=== PATIENT | male | born 1950 | race African-American/Black ===

== ENCOUNTER 2017-07-15 09:13 | Observation (INO) | payer OTHER, MEDICAID ==
[~2017-07-15] VITALS: Ht 172.7 cm; Wt 75.0 kg
[~2017-07-15 09:13] MED LIST: ASPI325T PO; CARV6.252 PO; FERR324T8 PO; FURO10S PO; LANTUS2P; LIPI20TA PO; METO5TAB46 PO; NOVOLOGP2 SQ; PANT40IN3; POTA-243 PO; QUET25 PO; TRAM100T19 PO
[2017-07-15 09:24] VITALS: BP 124/83; PULSE 77; RESP 24; TEMP 92.2; O2SAT 99
[2017-07-15] MEDS ORDERED: SODIUM CHLORIDE 0.9% FLUSH 10 ML FLUSH IVF PRN (09:45)
[2017-07-15] MEDS ORDERED: FUROSEMIDE 40 MG/4 ML VIAL IVP ONE (09:45)
--- NOTE | 2017-07-15 09:46 | PD ---
HPI Chief Complaint: Edema Time Seen by Provider: 09:33 Travel History International Travel<30 days: No Contact w/Intl Traveler<30days: No Traveled to known affect area: No History of Present Illness HPI 67-year-old male patient with history of hypertension, diabetes, CHF, currently on Lasix, presents to the ER today because of worsening of shortness of breath overnight, worse with laying down, leg swelling, facial swelling according to his neighbor. Patient denies any changes to his medications. He denies any chest pains, fevers, or other symptoms. Modifying Factors: None Associated Signs & Symptoms: Chest discomfort, shortness of breath, dyspnea on exertion, orthopnea Risk Factors: CHF history PFSH Past Medical History Hx Anticoagulant Therapy: Yes (asa 81) Autoimmune Disease: No Blood Disorders: No Cancer: No Cardiovascular Problems: No Diabetes: Yes Genitourinary: No Musculoskeletal: No Neurologic: No Psychiatric: No Reproductive: No Respiratory: No Thyroid Disease: No Past Surgical History Abdominal Surgery: No Cardiac Surgery: No Ear Surgery: No Endocrine Surgery: No Eye Surgery: No Genitourinary Surgery: No Gynecologic Surgery: No Neurologic Surgery: Yes (DISC SURGERY IN NECK) Oral Surgery: No Thoracic Surgery: No Social History Alcohol Use: Yes (2-3 BEERS/DAY) Tobacco Use: No Substance Use: No Allergies-Medications (Allergen,Severity, Reaction): Coded Allergies: No Known Allergies (Verified Adverse Reaction, Unknown, 07/15/17) Reported Meds & Prescriptions Reported Meds & Active Scripts Active Reported Aspirin Low Dose (Aspirin) 81 Mg Chew 81 Mg CHEW DAILY Lantus Inj (Insulin Glargine) 1,000 Unit/10 Ml Vial 14 Units SQ HS Novolog Inj (Insulin Aspart) 1,000 Unit/10 Ml Vial 11 Units SQ BIDAC Hydrocodone-Acetaminophen 5-325 mg Tab 1 Tab PO Q6H PRN Quetiapine (Quetiapine Fumarate) 25 Mg Tab 25 Mg PO HS Omeprazole 20 Mg Tab 20 Mg PO DAILY Atorvastatin (Atorvastatin Calcium) 20 Mg Tab 20 Mg PO HS Tamsulosin (Tamsulosin HCl) 0.4 Mg Cap 0.4 Mg BID Gabapentin 300 Mg Cap 300 Mg PO BID Potassium Chloride ER (Potassium Chloride) 20 Meq Tab 20 Meq PO DAILY Lisinopril 10 Mg Tab 10 Mg PO DAILY Amlodipine (Amlodipine Besylate) 10 Mg Tab 20 Mg PO DAILY Furosemide 40 Mg Tab 40 Mg PO DAILY Metoprolol Succinate ER 24 HR (Metoprolol Succinate) 25 Mg Tab 12.5 Mg PO DAILY Review of Systems Except as stated in HPI: all other systems reviewed are Neg Physical Exam Narrative GENERAL: Well-developed elderly male patient currently in mild respiratory distress at rest. Awake and oriented 3. SKIN: Focused skin assessment warm/dry. HEAD: Atraumatic. Normocephalic. EYES: Pupils equal and round. No scleral icterus. No injection or drainage. ENT: No nasal bleeding or discharge. Mucous membranes pink and moist. NECK: Trachea midline. Positive JVD. CARDIOVASCULAR: Regular rate and rhythm. No murmur appreciated. RESPIRATORY: No accessory muscle use. Bilateral rales at the bases. Breath sounds equal bilaterally. GASTROINTESTINAL: Abdomen soft, non-tender, nondistended. Hepatic and splenic margins not palpable. MUSCULOSKELETAL: No obvious deformities. No clubbing. No cyanosis. Bilateral pitting edema the legs. NEUROLOGICAL: Awake and alert. No obvious cranial nerve deficits. Motor grossly within normal limits. Normal speech. PSYCHIATRIC: Appropriate mood and affect; insight and judgment normal. Data Data Last Documented VS Vital Signs Date Time Temp Pulse Resp B/P (MAP) Pulse Ox O2 Delivery O2 Flow Rate FiO2 07/15/17 10:35 75 18 97 Room Air 07/15/17 10:35 141/88 (105) 07/15/17 09:24 92.2 Orders Orders Complete Blood Count With Diff (07/15/17 09:33) Comprehensive Metabolic Panel (07/15/17 09:33) B-Type Natriuretic Peptide (07/15/17 09:33) Act Partial Throm Time (Ptt) (07/15/17 09:33) Prothrombin Time / Inr (Pt) (07/15/17 09:33) Ckmb (Isoenzyme) Profile (07/15/17 09:33) Troponin I (07/15/17 09:33) Iv Access Insert/Monitor (07/15/17 09:33) Electrocardiogram (07/15/17:33) Ecg Monitoring (07/15/17 09:33) Oximetry (07/15/17 09:33) Oxygen Administration (07/15/17 09:33) Chest, Single Ap (07/15/17 09:33) Sodium Chloride 0.9% Flush (Ns Flush) (07/15/17 09:45) Furosemide Inj (Lasix Inj) (07/15/17 09:45) CKMB (07/15/17 11:12) CKMB% (07/15/17 11:12) Methylprednisolone So Succ Inj (Solumedr (07/15/17 13:00) Diphenhydramine Inj (Benadryl Inj) (07/15/17 13:00) Admit Order (Ed Use Only) (07/15/17 13:09) Labs Laboratory Tests Test 07/15/17 09:55 07/15/17 11:12 White Blood Count 5.9 TH/MM3 Red Blood Count 4.52 MIL/MM3 Hemoglobin 12.6 GM/DL Hematocrit 36.1 % Mean Corpuscular Volume 79.8 FL Mean Corpuscular Hemoglobin 27.9 PG Mean Corpuscular Hemoglobin Concent 35.0 % Red Cell Distribution Width 15.3 % Platelet Count 159 TH/MM3 Mean Platelet Volume 8.2 FL Neutrophils (%) (Auto) 84.0 % Lymphocytes (%) (Auto) 9.7 % Monocytes (%) (Auto) 4.5 % Eosinophils (%) (Auto) 0.4 % Basophils (%) (Auto) 1.4 % Neutrophils # (Auto) 4.9 TH/MM3 Lymphocytes # (Auto) 0.6 TH/MM3 Monocytes # (Auto) 0.3 TH/MM3 Eosinophils # (Auto) 0.0 TH/MM3 Basophils # (Auto) 0.1 TH/MM3 CBC Comment DIFF FINAL Differential Comment Prothrombin Time 9.9 SEC Prothromb Time International Ratio 1.0 RATIO Activated Partial Thromboplast Time 24.5 SEC Blood Urea Nitrogen 29 MG/DL Creatinine 3.11 MG/DL Random Glucose 127 MG/DL Total Protein 6.6 GM/DL Albumin 2.4 GM/DL Calcium Level 8.0 MG/DL Alkaline Phosphatase 79 U/L Aspartate Amino Transf (AST/SGOT) 76 U/L Alanine Aminotransferase (ALT/SGPT) 24 U/L Total Bilirubin 0.3 MG/DL Sodium Level 135 MEQ/L Potassium Level 4.8 MEQ/L Chloride Level 104 MEQ/L Carbon Dioxide Level 18.2 MEQ/L Anion Gap 13 MEQ/L Estimat Glomerular Filtration Rate 24 ML/MIN Total Creatine Kinase 2152 U/L Creatine Kinase MB 23.1 NG/ML Creatine Kinase MB % 1.1 % Troponin I 0.07 NG/ML B-Type Natriuretic Peptide 91 PG/ML MDM Medical Decision Making Medical Screen Exam Complete: Yes Emergency Medical Condition: Yes Medical Record Reviewed: Yes Interpretation(s) EKG shows NSR, no ST elevation or depression, and no arrhythmias. No significant T-wave inversions. Laboratory Tests Test 07/15/17 09:55 07/15/17 11:12 Hemoglobin 12.6 GM/DL (13.0-17.0) Hematocrit 36.1 % (39.0-51.0) Mean Corpuscular Volume 79.8 FL (80.0-100.0) Neutrophils (%) (Auto) 84.0 % (16.0-70.0) Lymphocytes # (Auto) 0.6 TH/MM3 (1.0-4.8) Blood Urea Nitrogen 29 MG/DL (7-18) Creatinine 3.11 MG/DL (0.60-1.30) Random Glucose 127 MG/DL (74-106) Albumin 2.4 GM/DL (3.4-5.0) Calcium Level 8.0 MG/DL (8.5-10.1) Aspartate Amino Transf (AST/SGOT) 76 U/L (15-37) Sodium Level 135 MEQ/L (136-145) Carbon Dioxide Level 18.2 MEQ/L (21.0-32.0) Estimat Glomerular Filtration Rate 24 ML/MIN (>89) Total Creatine Kinase 2152 U/L (39-308) Creatine Kinase MB 23.1 NG/ML (0.5-3.6) Troponin I 0.07 NG/ML (0.02-0.05) Last 24 hours Impressions Chest X-Ray 07/15/17 0933 Signed Impressions: Service Date/Time: Saturday, July 15, 2017 09:42 - CONCLUSION: Minimal parenchymal changes left base Frank Ugarte MD FACR Differential Diagnosis CHF exacerbation versus COPD versus pneumonia Narrative Course Exam was concerning for some underlying CHF and Lasix was initiated especially with his history. However, chest x-ray did not show significant CHF at this point. On further evaluation, his lip does appear more swollen and there is some concern here that this could be angioedema especially because he is on an MONSE inhibitor as well. Patient was given Solu-Medrol and Benadryl in the ER. Epinephrine was deferred at this point considering that his vital signs are fairly stable, he does not have significant airway compromise, and his underlying cardiac history which could put him at risk for further complication right now. At this point, my plan would be to admit the patient for further evaluation and treatment. Case has been discussed with Dr. Alvarez for admission. Diagnosis Primary Impression: Shortness of breath Additional Impression: Angioedema Admitting Information Admitting Physician Requests: Admit Gardenia De Los Santos MD July 15, 2017 09:46
[2017-07-15 09:50] VITALS: BP 141/88; PULSE 75; RESP 18; O2SAT 97
--- NOTE | 2017-07-15 10:05 | RADRPT ---
EXAM DATE/TIME: 07/15/2017 09:42 [facility] COMPARISON: No previous studies available for comparison. INDICATIONS : Shortness of breath and face swelling. MEDICAL HISTORY : Diabetes. SURGICAL HISTORY : Neck surgery. ENCOUNTER: Initial ACUITY: 1 day PAIN SCORE: 0/10 LOCATION: Bilateral chest FINDINGS: Minimal parenchymal changes left base. Right lung clear. The heart and pulmonary vascularity are nor mal. Degenerative changes both shoulders. CONCLUSION: Minimal parenchymal changes left base Frank Ugarte MD FACR on July 15, 2017 at 9:59 Board Certified Radiologist. This report was verified electronically.
[2017-07-15] MEDS ORDERED: HYDR-3516 PO (10:07)
[2017-07-15] MEDS ORDERED: GABA300C5 PO (10:07)
[2017-07-15] MEDS ORDERED: LANTUS2P SQ (10:07)
[2017-07-15] MEDS ORDERED: ATOR20TA15 PO (10:07)
[2017-07-15] MEDS ORDERED: TAMS0.4C4 (10:07)
[2017-07-15] MEDS ORDERED: FURO40TA PO (10:07)
[2017-07-15] MEDS ORDERED: ASPI81CH6 CHEW (10:07)
[2017-07-15] MEDS ORDERED: LISI10TA3 PO (10:07)
[2017-07-15] MEDS ORDERED: POTA-163 PO (10:07)
[2017-07-15] MEDS ORDERED: OMEP20TA93 PO (10:07)
[2017-07-15] MEDS ORDERED: NOVOLOGP2 SQ (10:07)
[2017-07-15] MEDS ORDERED: METO1TAB42 PO (10:07)
[2017-07-15] MEDS ORDERED: AMLO10TA2 PO (10:07)
[2017-07-15] MEDS ORDERED: QUET1TAB7 PO (10:07)
[2017-07-15 10:18] LABS: AUTOMATED NEUTROPHIL # 4.9 TH/MM3 (1.8-7.7); BASOPHIL # 0.1 TH/MM3 (0-0.2); BASOPHIL % 1.4 % (0.0-2.0); EOSINOPHIL % 0.4 % (0.0-4.0); HEMATOCRIT 36.1 % (39.0-51.0); HEMOGLOBIN 12.6 GM/DL (13.0-17.0); LYMPH % 9.7 % (9.0-44.0); LYMPHOCYTE # 0.6 TH/MM3 (1.0-4.8); MEAN CELL VOLUME 79.8 FL (80.0-100.0); MEAN CORPUSCULAR HEMOGLOBIN 27.9 PG (27.0-34.0); MEAN PLATELET VOLUME 8.2 FL (7.0-11.0); MONO % 4.5 % (0.0-8.0); MONOCYTE # 0.3 TH/MM3 (0-0.9); PLATELET COUNT 159 TH/MM3 (150-450); RED BLOOD COUNT 4.52 MIL/MM3 (4.50-5.90); RED CELL DISTRIBUTION WIDTH 15.3 % (11.6-17.2); WHITE BLOOD COUNT 5.9 TH/MM3 (4.0-11.0)
[2017-07-15 10:27] LABS: PROTHROMBIN TIME - PATIENT 9.9 SEC (9.8-11.6)
[2017-07-15 10:35] VITALS: BP 141/88; PULSE 75; RESP 18; O2SAT 97
[2017-07-15 11:44] LABS: ALBUMIN 2.4 GM/DL (3.4-5.0); AST (GOT) 76 U/L (15-37); BICARBONATE 18.2 MEQ/L (21.0-32.0); BLOOD UREA NITROGEN 29 MG/DL (7-18); CHLORIDE 104 MEQ/L (98-107); CREATININE 3.11 MG/DL (0.60-1.30); GLOMERULAR FILTRATION RATE 24 ML/MIN (>89); GLUCOSE,RANDOM 127 MG/DL (74-106); SODIUM (NA) 135 MEQ/L (136-145)
[2017-07-15 11:45] LABS: ALT (GPT) 24 U/L (12-78)
[2017-07-15 11:59] LABS: ALKALINE PHOSPHATASE 79 U/L (45-117); TOTAL BILIRUBIN ADULT 0.3 MG/DL (0.2-1.0); TOTAL PROTEIN 6.6 GM/DL (6.4-8.2); TROPONIN I 0.07 NG/ML (0.02-0.05)
[2017-07-15] MEDS ORDERED: methylPREDNISolone SOD SUCC 125 MG/2 ML VIAL IV PUSH ONE (13:00)
[2017-07-15] MEDS ORDERED: diphenhydrAMINE HCL 50 MG/ML VIAL IV PUSH ONE (13:00)
[2017-07-15 13:36] VITALS: BP 161/82; PULSE 81; RESP 20; O2SAT 98
--- NOTE | 2017-07-15 13:42 | HHI.HP ---
[facility] Admission Diagnosis Shortness of breath/angioedema Diagnoses: (1) Angioedema (2) Benign labile hypertension Chief Complaint: Shortness of breath, swollen left lower lip Travel History International Travel<30 Days: No Contact w/Intl Traveler <30 Da: No Traveled to Known Affected Are: No History of Present Illness 67-year-old man with past medical history of hypertension, CHF, diabetes type 2 presents to the ED for evaluation of an acute onset of worsening symptoms of shortness of breath associated with left lower lip swelling as well as wheezing. Patient also complains of increasing left lower extremity swelling. Denies any dysphagia and he is currently able to protect his airways. Patient denies any trauma to his leg or any ants/insect bite. Patient denies any new medications however he is currently on lisinopril for hypertension. BNP 91 and worsening renal function and elevated total CK. Review of Systems Except as stated in HPI: all other systems reviewed are Neg Past Family Social History Past Medical History Hypertension Diabetes Past Surgical History Cervical spine surgery Right great toe amputation Reported Medications Aspirin Low Dose (Aspirin) 81 Mg Chew 81 Mg CHEW DAILY Lantus Inj (Insulin Glargine) 1,000 Unit/10 Ml Vial 14 Units SQ HS Novolog Inj (Insulin Aspart) 1,000 Unit/10 Ml Vial 11 Units SQ BIDAC Hydrocodone-Acetaminophen 5-325 mg Tab 1 Tab PO Q6H PRN Quetiapine (Quetiapine Fumarate) 25 Mg Tab 25 Mg PO HS Omeprazole 20 Mg Tab 20 Mg PO DAILY Atorvastatin (Atorvastatin Calcium) 20 Mg Tab 20 Mg PO HS Tamsulosin (Tamsulosin HCl) 0.4 Mg Cap 0.4 Mg BID Gabapentin 300 Mg Cap 300 Mg PO BID Potassium Chloride ER (Potassium Chloride) 20 Meq Tab 20 Meq PO DAILY Lisinopril 10 Mg Tab 10 Mg PO DAILY Amlodipine (Amlodipine Besylate) 10 Mg Tab 20 Mg PO DAILY Furosemide 40 Mg Tab 40 Mg PO DAILY Metoprolol Succinate ER 24 HR (Metoprolol Succinate) 25 Mg Tab 12.5 Mg PO DAILY Allergies: Coded Allergies: No Known Allergies (Verified Allergy, Unknown, 07/15/17) Family History Diabetes Social History Alcohol Use: Yes (2-3 BEERS/DAY) Tobacco Use: No Substance Use: No Physical Exam Vital Signs Vital Signs Date Time Temp Pulse Resp B/P (MAP) Pulse Ox O2 Delivery O2 Flow Rate FiO2 07/15/17 13:36 81 20 161/82 (108) 98 Room Air 07/15/17 10:35 75 18 97 Room Air 07/15/17 10:35 75 18 141/88 (105) 97 Room Air 07/15/17 09:50 97 Room Air 07/15/17 09:50 75 18 141/88 (105) 97 07/15/17 09:24 92.2 77 24 124/83 (97) 99 Physical Exam GENERAL: This is a well-nourished, well-developed patient, in no apparent distress. SKIN: No rashes, ecchymoses or lesions. Cool and dry. HEAD: Atraumatic. Normocephalic. No temporal or scalp tenderness. EYES: Pupils equal round and reactive. Extraocular motions intact. No scleral icterus. No injection or drainage. ENT: Nose without bleeding, purulent drainage or septal hematoma. Throat without erythema, tonsillar hypertrophy or exudate. Uvula midline. Airway patent. NECK: Trachea midline. No JVD or lymphadenopathy. Supple, nontender, no meningeal signs. Mouth: swelling lower lip CARDIOVASCULAR: Regular rate and rhythm without murmurs, gallops, or rubs. RESPIRATORY: Clear to auscultation. Breath sounds equal bilaterally. No wheezes , rales, or rhonchi. GASTROINTESTINAL: Abdomen soft, non-tender, nondistended. No hepato-splenomegaly , or palpable masses. No guarding. MUSCULOSKELETAL: Extremities without clubbing, cyanosis; +1 edema. No calf tenderness. Negative Homans sign bilaterally. NEUROLOGICAL: Awake and alert. Cranial nerves II through XII intact. Motor and sensory grossly within normal limits. Five out of 5 muscle strength in all muscle groups. Normal speech. Laboratory Laboratory Tests Test 07/15/17 09:55 07/15/17 11:12 White Blood Count 5.9 Red Blood Count 4.52 Hemoglobin 12.6 Hematocrit 36.1 Mean Corpuscular Volume 79.8 Mean Corpuscular Hemoglobin 27.9 Mean Corpuscular Hemoglobin Concent 35.0 Red Cell Distribution Width 15.3 Platelet Count 159 Mean Platelet Volume 8.2 Neutrophils (%) (Auto) 84.0 Lymphocytes (%) (Auto) 9.7 Monocytes (%) (Auto) 4.5 Eosinophils (%) (Auto) 0.4 Basophils (%) (Auto) 1.4 Neutrophils # (Auto) 4.9 Lymphocytes # (Auto) 0.6 Monocytes # (Auto) 0.3 Eosinophils # (Auto) 0.0 Basophils # (Auto) 0.1 CBC Comment DIFF FINAL Differential Comment Prothrombin Time 9.9 Prothromb Time International Ratio 1.0 Activated Partial Thromboplast Time 24.5 Blood Urea Nitrogen 29 Creatinine 3.11 Random Glucose 127 Total Protein 6.6 Albumin 2.4 Calcium Level 8.0 Alkaline Phosphatase 79 Aspartate Amino Transf (AST/SGOT) 76 Alanine Aminotransferase (ALT/SGPT) 24 Total Bilirubin 0.3 Sodium Level 135 Potassium Level 4.8 Chloride Level 104 Carbon Dioxide Level 18.2 Anion Gap 13 Estimat Glomerular Filtration Rate 24 Total Creatine Kinase 2152 Creatine Kinase MB 23.1 Creatine Kinase MB % 1.1 Troponin I 0.07 B-Type Natriuretic Peptide 91 Result Diagram: 07/15/17 0955 07/15/17 1112 Imaging Last Impressions Chest X-Ray 07/15/17 0933 Signed Impressions: Service Date/Time: Saturday, July 15, 2017 09:42 - CONCLUSION: Minimal parenchymal changes left base Frank Ugarte MD FACR Septic Shock Reassessment Septic shock perfusion: reassessment completed Caprini VTE Risk Assessment Caprini VTE Risk Assessment: Mod/High Risk (score >= 2) Caprini Risk Assessment Model Point Value = 1 Point Value = 2 Point Value = 3 Point Value = 5 Age 41-60 Minor surgery BMI > 25 kg/m2 Swollen legs Varicose veins or History of unexplained or recurrent spontaneous Oral contraceptives or hormone replacement Sepsis (< 1 month) Serious lung disease, including pneumonia (< 1 month) Abnormal pulmonary function Acute myocardial infarction Congestive heart failure (< 1 month) History of inflammatory bowel disease Medical patient at bed rest Age 61-74 Arthroscopic surgery Major open surgery (> 45 min) Laparoscopic surgery (> 45 min) Malignancy Confined to bed (> 72 hours) Immobilizing plaster cast Central venous access Age >= 75 History of VTE Family history of VTE Factor V Leiden Prothrombin [id number] Lupus anticoagulant Anticardiolipin antibodies Elevated serum homocysteine Heparin-induced thrombocytopenia Other congenital or acquired thrombophilia Stroke (< 1 month) Elective arthroplasty Hip, pelvis, or leg fracture Acute spinal cord injury (< 1 month) Prophylaxis Regimen Total Risk Factor Score Risk Level Prophylaxis Regimen 0-1 Low Early ambulation 2 Moderate Order ONE of the following: *Sequential Compression Device (SCD) *Heparin 5000 units SQ BID 3-4 Higher Order ONE of the following medications: *Heparin 5000 units SQ TID *Enoxaparin/Lovenox 40 mg SQ daily (WT < 150 kg, CrCl > 30 mL/min) *Enoxaparin/Lovenox 30 mg SQ daily (WT < 150 kg, CrCl > 10-29 mL/min) *Enoxaparin/Lovenox 30 mg SQ BID (WT < 150 kg, CrCl > 30 mL/min) AND/OR *Sequential Compression Device (SCD) 5 or more Highest Order ONE of the following medications: *Heparin 5000 units SQ TID (Preferred with Epidurals) *Enoxaparin/Lovenox 40 mg SQ daily (WT < 150 kg, CrCl > 30 mL/min) *Enoxaparin/Lovenox 30 mg SQ daily (WT < 150 kg, CrCl > 10-29 mL/min) *Enoxaparin/Lovenox 30 mg SQ BID (WT < 150 kg, CrCl > 30 mL/min) AND *Sequential Compression Device (SCD) Assessment and Plan Problem List: (1) Angioedema ICD Code: T78.3XXA - Angioneurotic edema, initial encounter Status: Acute (2) Rhabdomyolysis ICD Code: M62.82 - Rhabdomyolysis (3) Benign labile hypertension ICD Code: I10 - Essential (primary) hypertension Status: Acute Assessment and Plan 67 years old man with Angioedema Currently on Lisinopril therefore will hold medication and possible d/c s/p treatment with Antihistamine/H2-receptor antagonist and Solu Medrol with improvement of symptoms patient is protecting is airway Acute on CKD stage III hold All nephrotoxic drugs gentle IVF hydration Monitor bun?cr Rhabdomyolysis IVF hydration however caution for signs of volume overload Monitor total Ck History of CHF of unknown type BNP of 91 and CXR noted and review without any pulmonary congestion Resume Lasix, BB Elevated troponin I Likely 2/2 CKD as opposed to ACS, however will still r/o ACS per protocol with serial cardiac enzymes and EKGs Labile HTN Resume outpatient medications Lopressor, Norvasc except Lisinopril Dementia? Will need outpatient follow up with PCP Diabetes mellitus Resume Basal Insulin and Aspart TID and start sliding scale insulin. Hyperlipidemia Resume Lipitor 20mg HS Code Status Full code Discussed Condition With patient, ED physician Anthony Alvarez MD July 15, 2017 13:42
[2017-07-15] MEDS ORDERED: SODIUM CHLORIDE 0.9% FLUSH 10 ML FLUSH IV FLUSH PRN (13:45)
[2017-07-15] MEDS ORDERED: ONDANSETRON HCL 4 MG/2 ML VIAL IVP PRN (13:45)
[2017-07-15] MEDS ORDERED: ACETAMINOPHEN 325 MG TAB PO PRN ×2 (13:45)
[2017-07-15] MEDS ORDERED: hydrALAZINE HCL 25 MG TAB PO PRN (13:45)
[2017-07-15] MEDS ORDERED: RESP: ALBUTEROL 2.5 MG/IPRATROPIUM 0.5 MG NEB (PRN) NEB (13:45)
[2017-07-15] MEDS ORDERED: DEXTROSE 50% IN WATER 50 ML VIAL(D50) IV PUSH PRN (13:45)
[2017-07-15] MEDS ORDERED: GLUCAGON 1 MG/ML VIAL OTHER PRN (13:45)
[2017-07-15] MEDS ORDERED: MAGNESIUM HYDROXIDE SUSP 30 ML CUP PO PRN (13:45)
[2017-07-15] MEDS ORDERED: NALOXONE HCL 0.4 MG/ML AMP IV PUSH PRN (13:45)
[2017-07-15] MEDS: METOPROLOL SUCCINATE 25 MG EXTENDED RELEASE TAB PO SCH (14:51)
[2017-07-15] MEDS: SODIUM CHLOR 0.9% 1000 ML INJ 1,000 ML IV SCH ×2 (14:51→23:30)
[2017-07-15 15:21] VITALS: BP 146/90; PULSE 82; RESP 16; TEMP 97.3; O2SAT 98
[2017-07-15] MEDS: INSULIN ASPART SUPPLEMENTAL SCALE SQ SCH ×2 (17:00→21:19)
--- NOTE | 2017-07-15 18:03 | EKG ---
Date Performed: 07/15/2017 Time Performed: 09:47:10 PTAGE: 67 years EKG: Sinus rhythm PATTERN CONSISTENT WITH PULMONARY DISEASE LEFT ANTERIOR FASCICULAR BLOCK VOLTAGE CRITERIA FOR LVH NO NSPECIFIC ST & T-WAVE ABNORMALITY ABNORMAL ECG Since the PREVIOUS TRACING , no significant change noted PREVIOUS TRACIN11/28/2015 18.58 DOCTOR: Neisha Burns Interpretating Date/Time 07/15/2017 16:34:32
[2017-07-15] MEDS: INSULIN ASPART 1,000 UNITS/10 ML VIAL SQ SCH (18:39)
[2017-07-15 19:45] LABS: TROPONIN I 0.07 NG/ML (0.02-0.05)
[2017-07-15] MEDS: TAMSULOSIN HCL 0.4 MG CAP PO SCH (20:08)
[2017-07-15 20:11] VITALS: BP 136/84; PULSE 95; RESP 16; TEMP 97.8; O2SAT 97
[2017-07-15] MEDS ORDERED: QUEtiapine FUMARATE 25 MG TAB PO SCH (21:00)
[2017-07-15] MEDS: SODIUM CHLORIDE 0.9% FLUSH 10 ML FLUSH IV FLUSH SCH (21:00)
[2017-07-15] MEDS ORDERED: ATORVASTATIN 20 MG TAB PO SCH (21:00)
[2017-07-15] MEDS ORDERED: INSULIN DETEMIR 100 UNITS/ML VIAL SQ SCH (21:00)
[2017-07-16 00:03] VITALS: BP 122/77; PULSE 86; RESP 16; TEMP 98.2; O2SAT 97
[2017-07-16 02:28] LABS: TROPONIN I 0.05 NG/ML (0.02-0.05)
[2017-07-16 04:16] VITALS: BP 129/80; PULSE 86; RESP 16; TEMP 97.7; O2SAT 100
[2017-07-16 07:47] VITALS: BP 152/90; PULSE 103; RESP 16; TEMP 98.4; O2SAT 98
[2017-07-16] MEDS ORDERED: FUROSEMIDE 40 MG TAB PO SCH (09:00)
[2017-07-16] MEDS ORDERED: ASPIRIN 81 MG CHEW TAB CHEW SCH (09:00)
[2017-07-16] MEDS ORDERED: POTASSIUM CHLORIDE 20 MEQ CONTROLLED RELEASE TAB PO SCH (09:00)
[2017-07-16 09:21] LABS: AUTOMATED NEUTROPHIL # 8.5 TH/MM3 (1.8-7.7); BASOPHIL % 0.3 % (0.0-2.0); HEMATOCRIT 36.8 % (39.0-51.0); HEMOGLOBIN 12.2 GM/DL (13.0-17.0); LYMPH % 5.7 % (9.0-44.0); LYMPHOCYTE # 0.5 TH/MM3 (1.0-4.8); MEAN CELL VOLUME 80.9 FL (80.0-100.0); MEAN CORPUSCULAR HEMOGLOBIN 26.8 PG (27.0-34.0); MEAN CORPUSCULAR HGB CONC 33.1 % (32.0-36.0); MEAN PLATELET VOLUME 8.5 FL (7.0-11.0); MONO % 2.6 % (0.0-8.0); MONOCYTE # 0.2 TH/MM3 (0-0.9); NEUT % 91.4 % (16.0-70.0); PLATELET COUNT 131 TH/MM3 (150-450); RED BLOOD COUNT 4.54 MIL/MM3 (4.50-5.90); RED CELL DISTRIBUTION WIDTH 15.3 % (11.6-17.2); WHITE BLOOD COUNT 9.3 TH/MM3 (4.0-11.0)
[2017-07-16] MEDS: INSULIN ASPART SUPPLEMENTAL SCALE SQ SCH (09:22)
[2017-07-16] MEDS: SODIUM CHLORIDE 0.9% FLUSH 10 ML FLUSH IV FLUSH SCH (09:23)
[2017-07-16] MEDS: INSULIN ASPART 1,000 UNITS/10 ML VIAL SQ SCH (09:23)
[2017-07-16] MEDS: METOPROLOL SUCCINATE 25 MG EXTENDED RELEASE TAB PO SCH (09:25)
[2017-07-16] MEDS: TAMSULOSIN HCL 0.4 MG CAP PO SCH (09:26)
[2017-07-16] MEDS: SODIUM CHLOR 0.9% 1000 ML INJ 1,000 ML IV SCH (09:31)
[2017-07-16 09:48] LABS: ALBUMIN 2.3 GM/DL (3.4-5.0); AST (GOT) 46 U/L (15-37); BICARBONATE 16.8 MEQ/L (21.0-32.0); BLOOD UREA NITROGEN 39 MG/DL (7-18); CALCIUM 8.2 MG/DL (8.5-10.1); CHLORIDE 107 MEQ/L (98-107); CREATININE 3.04 MG/DL (0.60-1.30); GLOMERULAR FILTRATION RATE 25 ML/MIN (>89); GLUCOSE,RANDOM 212 MG/DL (74-106); SODIUM (NA) 135 MEQ/L (136-145)
[2017-07-16 09:49] LABS: ALT (GPT) 21 U/L (12-78)
[2017-07-16 09:51] LABS: ALKALINE PHOSPHATASE 73 U/L (45-117); TOTAL BILIRUBIN ADULT 0.2 MG/DL (0.2-1.0); TOTAL PROTEIN 6.6 GM/DL (6.4-8.2)
[2017-07-16] MEDS ORDERED: NIFE30TA61 PO (10:20)
[2017-07-16] MEDS ORDERED: K-TA10TA PO (10:20)
--- NOTE | 2017-07-16 10:31 | HHI.PR ---
Subjective Remarks Follow up for lisinopril associated angioedema. Patient is currently doing well. Swelling is down. Tolerating food well. No airway issues. No fever, chills. On room air. Objective Vitals Vital Signs Date Time Temp Pulse Resp B/P (MAP) Pulse Ox O2 Delivery O2 Flow Rate FiO2 07/16/17 07:47 98.4 103 16 152/90 (110) 98 07/16/17 04:16 97.7 86 16 129/80 (96) 100 07/16/17 00:03 98.2 86 16 122/77 (92) 97 07/15/17 20:11 97.8 95 16 136/84 (101) 97 07/15/17 15:21 97.3 82 16 146/90 (108) 98 07/15/17 14:46 07/15/17 13:36 81 20 161/82 (108) 98 Room Air 07/15/17 10:35 75 18 97 Room Air 07/15/17 10:35 75 18 141/88 (105) 97 Room Air I/O 07/15/17 07/15/17 07/15/17 07/16/17 07/16/17 07/16/17 07:00 15:00 23:00 07:00 15:00 23:00 Intake Total 240 ml Balance 240 ml Intake Oral 240 ml # Voids 2 Result Diagram: 07/16/17 0856 07/16/17 0856 Imaging Last Impressions Chest X-Ray 07/15/17 0933 Signed Impressions: Service Date/Time: Saturday, July 15, 2017 09:42 - CONCLUSION: Minimal parenchymal changes left base Frank Ugarte MD FACR Objective Remarks GENERAL: Alert, oriented x 3, NAD. SKIN: Warm and dry. HEAD: Normocephalic. Slight swelling present on the lower lip. EYES: No scleral icterus. No injection or drainage. NECK: Supple, trachea midline. No JVD or lymphadenopathy. CARDIOVASCULAR: Regular rate and rhythm without murmurs, gallops, or rubs. RESPIRATORY: Breath sounds equal bilaterally. No accessory muscle use. GASTROINTESTINAL: Abdomen soft, non-tender, nondistended. MUSCULOSKELETAL: No cyanosis, or edema. BACK: Nontender without obvious deformity. No CVA tenderness. Procedures None. A/P Problem List: (1) Angioedema ICD Code: T78.3XXA - Angioneurotic edema, initial encounter Status: Acute (2) Rhabdomyolysis ICD Code: M62.82 - Rhabdomyolysis (3) Benign labile hypertension ICD Code: I10 - Essential (primary) hypertension Status: Acute Assessment and Plan Mr. Gray is a 67-year-old man with past medical history of hypertension, CHF, diabetes type 2 presents to the ED for evaluation of an acute onset of worsening symptoms of shortness of breath associated with left lower lip swelling as well as wheezing. Patient was given steroid and H2 murray. Patient continued to do well. Acute angioedema - Discontinue Lisinopril. Would advise against using any MONSE inhibitors in future. - However, use of ARB (e.g, Losartan) would be appropriate. Would recommend waiting 4 weeks before ARB is started. Acute on Chronic kidney disease CKD stage III Rhabdomyolysis - Avoid NSAIDs and other nephrotoxic agents. Patient should follow up with outpatient Assistant Banquet Manager. - with IV fluid, patient's total CK improved from 2152 ==> 874. Hypertension - Will change from Amlodipine 20mg Qday to Nifedipine 30mg BID. May increase to 60mg BID if needed. - If HTN persist, one reasonable regimen would be to keep Nifedipine 30mg BID and after 4 weeks from 07/16/2017, consider adding ARB. Diabetes mellitus - continue home insulin regimen - long acting insulin as well as sliding scale insulin. Full code. Ambulation. Discharge patient to home Condition on discharge: Improved Diabetic Diet as tolerated Ad Saskia activity Rx written: K-tab 10meq once a day Nifedipine 30mg BID. PLEASE AVOID ALL MONSE inhibitors in future including Lisinopril. After 4 weeks from 07/16/2017, it would be reasonable to start ARB (e.g, Losartan). Follow-up with primary care physician within one week. Elza Subramanian DO July 16, 2017 10:31 am
== END 2017-07-16 12:28 | disposition home or self-care (01) ==
LOC: NEPC 09:13 → NEDA 13:10 → NEPFCDU 15:19
PROVIDERS: ADMIT Hospitalist; ATTEND Hospitalist
DX: T78.3XXA Angioneurotic edema, initial encounter (principal); M62.82 Rhabdomyolysis; I13.0 Hypertensive heart and chronic kidney disease with heart failure and stage 1 through stage 4 chronic kidney disease, or unspecified chronic kidney disease; I50.9 Heart failure, unspecified; N18.3 Chronic kidney disease, stage 3 (moderate); E11.22 Type 2 diabetes mellitus with diabetic chronic kidney disease; E78.5 Hyperlipidemia, unspecified; Z79.4 Long term (current) use of insulin; Z89.411 Acquired absence of right great toe
CPT/HCPCS: 71045; 80053; 82550; 82552; 82948; 83880; 84484; 85025; 85610; 85730; 93005; 96361; 96372; 96374; 96375; 97163; 99285; G0378; G8987; G8988; J1200; J1815; J1940; J2930; J7030